=== PATIENT | female | born 1960 | race Caucasian/White ===

== ENCOUNTER 2018-12-18 18:04 | Inpatient (IN) | payer OTHER ==
[2018-12-18 18:45] LABS: Actual Bicarbonate (HCO3a) 20.8 mEq/L (22-28); Analyzer IN Cardio ER; Base Excess (BEa) -2.5 mEq/L (-2.0 to +3.0); CO2 Tension 31.8 mmHg (35.0-45.0); Calcium, Ionized 1.14 mmol/L (1.12-1.30); Carboxyhemoglobin (COHb) 0.3 gm% (0.0-3.0); Hemoglobin (Hb) 12.7 g/dL (12.0-16.0); Potassium - ABG Lab 4.14 mmol/L (3.70-5.30); pH, Arterial 7.43 (7.35-7.45)
[2018-12-18 18:46] LABS: O2 Tension (PaO2) 58.7 mmHg (80.0-100.0)
[2018-12-18 18:47] LABS: Puncture Site RRA
[2018-12-18 23:16] VITALS: BMI 40.6
[2018-12-18] MEDS ORDERED: Morphine 4 MG/ML VIAL SLOW IVP SCH (23:30)
[2018-12-19] MEDS ORDERED: Ondansetron ODT 4 MG TAB SL PRN (01:49)
[2018-12-19] MEDS ORDERED: Ondansetron PF 4 MG/2 ML Vial IVP PRN ×2 (01:49→02:38)
[2018-12-19] MEDS ORDERED: Dexamethasone 4 mg/ml Vial SLOW IVP SCH (02:00)
[2018-12-19] MEDS ORDERED: hydrALAZINE 20 MG/ML VIAL SLOW IVP PRN (02:38)
[2018-12-19] MEDS ORDERED: Dextrose 5% in Water 1,000 ML IV PRN (02:38)
[2018-12-19] MEDS ORDERED: Dextrose 50% Abboject 50 ML SYRINGE SLOW IVP PRN (02:38)
[2018-12-19] MEDS ORDERED: HumaLOG 300 UNITS/3 ML VIAL SC PRN ×2 (02:38)
[2018-12-19] MEDS: cefTRIAXone\\ROCEPHIN 1 GM in Sodium Chloride 0.9% 100 ML IVPB SCH (02:59)
[2018-12-19] MEDS: Azithromycin 500 MG in Sodium Chloride 0.9% 250 ML 250 ML IVPB SCH (04:16)
--- NOTE | 2018-12-19 04:51 | HP ---
PRIMARY CARE PHYSICIAN: She does not have a primary care physician. CHIEF COMPLAINT: Shortness of breath. HISTORY OF PRESENT ILLNESS: Ms. Riddle is a very pleasant 58-year-old female, who has a history of COPD as well as diabetes mellitus and hypothyroidism. She was in her usual state of health until about 3 to 4 days ago when she started having shortness of breath. She says she noted it initially when she got up too fast and was moving around. She also notes a cough, which was productive of some yellow to white phlegm. She denies having any fevers, but says that she has been having chills off and on, as well as some nausea. She came to the ER a couple of days ago, where she was evaluated. She had a CT angiogram of the chest, which was negative for pulmonary embolism; however, did show bilateral patchy opacities as well as some ground-glass opacities in the left upper lobe. She was prescribed some oral antibiotics. She says that she took a full day's worth of the antibiotics, but still was quite short of breath, and for this reason, she came back to the ER and is being admitted for failed outpatient treatment of pneumonia. The patient denies being hospitalized recently. Denies any sick contacts. She did have some diarrhea off and on, but she attributes this to the antibiotics. Otherwise, no other complaints. REVIEW OF SYSTEMS: All systems were reviewed and are negative except for that mentioned in the history of present illness. PAST MEDICAL HISTORY: Significant for restless legs syndrome, COPD, gastroesophageal reflux disease, arthritis, diabetes mellitus, hypothyroidism, and bipolar disorder. PAST SURGICAL HISTORY: She has had a hernia repair, cholecystectomy, hysterectomy, and thyroidectomy. ALLERGIES: COMPAZINE AND VANCOMYCIN. SOCIAL HISTORY: She is , has 6 children. She is a nonsmoker and nondrinker. She denies any drug use. Code status is full code. She has not designated a surrogate decision maker. FAMILY HISTORY: Significant for COPD in her mother as well as Umanzor syndrome, and father of asbestosis. MEDICATIONS: She does not know the names of her medicines except for Nexium. PHYSICAL EXAMINATION: GENERAL: She is alert and oriented. She appears to be in no acute distress. She is well developed and well nourished. VITAL SIGNS: Her blood pressure most recent is 158/80, heart rate is 84, respiratory rate is 22, temperature is 97.5, and O2 saturation is 96% on room air. HEENT: Her pupils are equal, round, and reactive. Extraocular muscles are intact. Her sclerae are anicteric. Throat, there is no erythema, no exudates. NECK: No adenopathy. No bruits. LUNGS: She had some diminished breath sounds; however, there was no wheezing, no rales, no rhonchi that I can appreciate. CARDIOVASCULAR: She had a normal S1 and S2. I did not appreciate an S3 or S4. No murmurs, clicks or rubs. ABDOMEN: Obese, soft, nontender, and nondistended. Positive for bowel sounds. There is no rebound, no guarding. No organomegaly. EXTREMITIES: There is no swelling. No erythema. No calf tenderness. NEUROLOGICAL: Her cranial nerves II through XII are grossly intact. Muscle strength is 5/5 in both her upper and lower extremities. SKIN AND INTEGUMENT: There is no skin changes. No rash. LABORATORY DATA: On her chest x-ray, this is by my reading, poorly penetrated, the heart size is borderline, looks like she has some infiltrate in the right base or platelike atelectasis. CBC, white blood cell count is 22.4, hemoglobin is 12.4, hematocrit is 36.3, and platelet count is 392. ABG, pH is 7.43, pCO2 is 31.8, and pO2 is 58.7. Sodium is 141, potassium is 4.0, chloride is 107, CO2 is 22, BUN is 20, creatinine is 0.92, and glucose is 160. Lactic acid was 2.6. Her urinalysis was essentially negative except for 1+ bacteria and trace leukocyte esterase and small blood. ASSESSMENT: This is a pleasant 58-year-old female, who is being admitted for failed outpatient treatment for pneumonia. It does appear to be a community-acquired pneumonia. She will be admitted to the medical floor, started on IV antibiotics. We will continue DuoNebs. However, she does not have any significant wheezing at this point, so we will hold off on any additional steroids at this time. 1. Chronic obstructive pulmonary disease. Again, we will continue DuoNebs. Hold off on any steroids and treat her with a long-acting beta-agonist. We will also need to reconcile her usual home medications. 2. Diabetes mellitus. We will place her on a sliding scale insulin, and again, we will need to reconcile her home medications. 3. Hypothyroidism. Again, we will need to reconcile home medicines. She appears to be clinically euthyroid. 4. She will be placed on DVT and GI prophylaxis. Job ID: [id number]
[2018-12-19] MEDS: traMADol HCl 50 MG TAB PO PRN ×3 (06:21→20:32)
[2018-12-19 07:46] LABS: Anion Gap 15 mmol/L (10-20); BUN (Urea Nitrogen) 19 mg/dL (9.8-20.1); Calc. Creatinine Clearance 113 mL/min (70-130); Calcium 9.2 mg/dL (7.8-10.44); Carbon Dioxide 20 mmol/L (22-29); Chloride 106 mmol/L (98-107); Estimated GFR-MDRD 69; Glucose 134 mg/dL (70-105); Potassium 3.6 mmol/L (3.5-5.1); Sodium 137 mmol/L (136-145)
[2018-12-19] MEDS: Enoxaparin Sodium 40 MG/0.4 ML SYRINGE SC SCH (08:28)
[2018-12-19 09:08] LABS: Hemoglobin 11.9 g/dL (12.0-16.0); Mean Corpuscular HGB CONC 32.7 g/dL (32.0-36.0); Mean Corpuscular Hemoglobin 29.9 pg (27.0-31.0); Mean Corpuscular Volume 91.5 fL (78.0-98.0); Mean Platelet Volume 9.6 fL (7.4-10.4); Platelet Count 432 thou/uL (130-400); RBC Distribution Width 12.7 % (11.5-14.5); Red Blood Cell (RBC) Count 3.99 mill/uL (4.20-5.40)
[2018-12-19 09:10] LABS: Band 2 % (5-11); Lymphocytes 39 % (21-51); MDiff Complete? YES; Monocytes 11 % (0-10); Neutrophil 48 % (42-75); Platelet Morphology Comment Appears Increased; RBC Morphology Normal
[2018-12-19] MEDS: Ondansetron ODT 4 MG TAB PO PRN ×2 (12:17→20:33)
--- NOTE | 2018-12-19 19:31 | PDOC.PN ---
- Subjective Encounter Start Date: 12/19/18 Encounter Start Time: 19:29 Subjective: seen feeling better - Objective Resuscitation Status - Order Detail: 12/19/18 02:33 Resuscitation Status Routine Resuscitation Status: FULL: Full Resuscitation Vital Signs & Weight: Vital Signs (12 hours) Temp Pulse Resp BP BP Pulse Ox 12/19/18 16:27 98.3 F 84 18 134/89 95 12/19/18 11:29 98.0 F 80 16 153/88 H 98 12/19/18 08:54 97.8 F 95 16 159/84 H 95 12/19/18 08:07 90 16 95 12/19/18 08:00 95 Weight Admit Weight 215 lb 3.2 oz Weight 215 lb 3.2 oz I&O: 12/18/18 12/19/18 12/20/18 06:59 06:59 06:59 Intake Total 485 480 Balance 485 480 Result Diagrams: 12/19/18 06:58 12/19/18 06:58 Additional Labs: Accuchecks 12/19/18 12/19/18 12/19/18 16:31 11:30 04:41 POC Glucose 106 122 H 124 H Phys Exam - Physical Examination Constitutional: NAD HEENT: PERRLA, moist MMs, sclera anicteric, TM's clear Neck: no nodes, no JVD, supple, full ROM Respiratory: no rales Cardiovascular: RRR, no significant murmur, no rub Gastrointestinal: soft, non-tender, no distention, positive bowel sounds Musculoskeletal: no edema, pulses present Neurological: non-focal, normal sensation, moves all 4 limbs Lymphatic: no nodes Dx/Plan (1) Pneumonia Code(s): J18.9 - PNEUMONIA, UNSPECIFIED ORGANISM Status: Acute (2) COPD exacerbation Code(s): J44.1 - CHRONIC OBSTRUCTIVE PULMONARY DISEASE W (ACUTE) EXACERBATION Status: Acute (3) Hypothyroidism Code(s): E03.9 - HYPOTHYROIDISM, UNSPECIFIED Status: Acute (4) Obesity Code(s): E66.9 - OBESITY, UNSPECIFIED Status: Acute - Plan continue antibiotics, respiratory therapy duonebs/antibiotics * .
[2018-12-19] MEDS: Benzonatate 100 MG CAP PO PRN (20:33)
[2018-12-20] MEDS: Ibuprofen 600 MG TAB PO PRN ×2 (00:26→21:46)
[2018-12-20] MEDS: cefTRIAXone\\ROCEPHIN 1 GM in Sodium Chloride 0.9% 100 ML IVPB SCH (03:36)
[2018-12-20] MEDS: traMADol HCl 50 MG TAB PO PRN ×2 (03:36→13:16)
[2018-12-20] MEDS: Azithromycin 500 MG in Sodium Chloride 0.9% 250 ML 250 ML IVPB SCH (03:48)
[2018-12-20] MEDS: Acetaminophen 325 MG TAB PO PRN (08:30)
[2018-12-20] MEDS: Benzonatate 100 MG CAP PO PRN (09:06)
[2018-12-20] MEDS: Enoxaparin Sodium 40 MG/0.4 ML SYRINGE SC SCH (09:07)
--- NOTE | 2018-12-20 14:50 | PQF ---
CLINICAL DOCUMENTATION IMPROVEMENT CLARIFICATION FORM: ICD-10 Updated PLEASE DO AN ADDENDUM TO THE PROGRESS NOTE WITH ANY DOCUMENTATION UPDATES OR ADDITIONS AND CARRY THROUGH TO DC SUMMARY. THANK YOU. DATE: 12/20/18 ATTN: DR. CHURCH Please exercise your independent, professional judgment in responding to the clarification form. Clinical indicators are provided on the bottom of this form for your review Please check appropriate box(s) to clarify if the following diagnosis has been ruled in or ruled out: SEPSIS [ ] Ruled in diagnosis [ ] Continue to treat [ ] Resolved [ ] Ruled out diagnosis [ ] Cannot rule out diagnosis [ ] Other diagnosis [ ] Unable to determine In addition, please specify: Present on Admission (POA): [ ] Yes [ ] No [ ] Unable to determine For continuity of documentation, please document condition throughout progress notes and discharge summary. Thank You. CLINICAL INDICATORS - SIGNS / SYMPTOMS / LABS ER NOTE: "SEPSIS" WBC 22 LACTATE 2.7 H&P: "CHILLS" RISKS: FAILED OUTPATIENT TREATMENT FOR PNEUMONIA (H&P) H/O COPD TREATMENT: IV LEVAQUIN (ER) IV ZITHROMAX (12/19-PRESENT) IV ROCEPHIN (12/19-PRESENT) SAP Armored Service Technician [employer] Winform Viewer(This form is maintained as a part of the permanent medical record) 2014 [employer]. All Rights Reserved TRELL [email or web address] Office: [phone] [email or web address]
[2018-12-21] MEDS: cefTRIAXone\\ROCEPHIN 1 GM in Sodium Chloride 0.9% 100 ML IVPB SCH (03:37)
[2018-12-21] MEDS: Azithromycin 500 MG in Sodium Chloride 0.9% 250 ML 250 ML IVPB SCH (03:37)
[2018-12-21] MEDS: Ibuprofen 600 MG TAB PO PRN ×3 (04:33→20:10)
[2018-12-21] MEDS: Enoxaparin Sodium 40 MG/0.4 ML SYRINGE SC SCH (07:47)
[2018-12-21] MEDS ORDERED: predniSONE 20 MG TAB PO SCH ×2 (10:00→10:30)
[2018-12-21] MEDS ORDERED: PROVENTIL INHALER 6.7 G (200 INHALATIONS) INH PRN (10:15)
[2018-12-21] MEDS ORDERED: Saccharomyces boulardii 250 MG CAP PO SCH ×2 (10:30→11:00)
--- NOTE | 2018-12-21 10:38 | PRG ---
DATE OF SERVICE: 12/21/2018 SUBJECTIVE: The patient is seen and examined at bedside. She just came back from her walk and she is quite short of breath. She is asking me whether she can have more DuoNeb. Apparently, this treatment was stopped and she would like to have them back. Her appetite is coming back. She had bowel movement. OBJECTIVE: VITAL SIGNS: Blood pressure is 123/76, pulse is 79, temperature is 98.2, maximal temperature is 98.3, respiratory rate is 16, O2 saturation is 94% on room air. HEENT: Her head is atraumatic and normocephalic. Eyes are PERRLA. Sclerae are nonicteric. Oral mucosa is moist. NECK: Supple. LUNGS: Somewhat tight with few wheezes in the mid and lower lungs bilaterally similar. HEART: S1, S2 normal. No S3. No S4. ABDOMEN: Obese, soft, nontender. Bowel sounds are present. EXTREMITIES: No clubbing, cyanosis, or edema. NEUROLOGICAL: She is alert and oriented x4. There is no any motor or sensory deficits present. Cranial nerves are intact. LABORATORY DATA: Glycemia is ranging from 85 to 116. Microbiology; growth on blood cultures x2 and the urine culture x1. IMPRESSION: 1. Chronic obstructive pulmonary disease exacerbation with some questionable infectious infiltrates on the CT angiogram. 2. Diabetes mellitus. 3. Hypothyroidism. PLAN: Plan is to put her back on her DuoNeb p.r.n. as needed. Start her on 40 mg of prednisone. Continue her Rocephin and azithromycin. Start her back on her levothyroxine, Cymbalta, her diabetic medications, pravastatin, aripiprazole, and Advair Diskus. Obtain CBC. Job ID: [id number]
[2018-12-21 11:38] LABS: Eosinophils 3 % (0-10); Hemoglobin 13.3 g/dL (12.0-16.0); Large Platelets SLIGHT; Lymphocytes 27 % (21-51); MDiff Complete? YES; Mean Corpuscular HGB CONC 32.5 g/dL (32.0-36.0); Mean Corpuscular Hemoglobin 29.4 pg (27.0-31.0); Mean Corpuscular Volume 90.6 fL (78.0-98.0); Mean Platelet Volume 9.4 fL (7.4-10.4); Monocytes 10 % (0-10); Neutrophil 33 % (42-75); Platelet Count 459 thou/uL (130-400); Platelet Morphology Comment Appears Increased; RBC Distribution Width 12.4 % (11.5-14.5); Reactive Lymphocytes 26 % (0-10); Red Blood Cell (RBC) Count 4.51 mill/uL (4.20-5.40); White Blood Cell (WBC) Count 16.1 thou/uL (4.8-10.8)
[2018-12-21] MEDS: metFORMIN XR 500 MG TAB PO SCH (16:50)
[2018-12-21] MEDS ORDERED: METFORMIN HCL PO SCH (17:00)
[2018-12-21] MEDS ORDERED: SAXAGLIPTIN HCL PO SCH (17:00)
[2018-12-21] MEDS: Mometasone/Formoterol 120 PUFF INHALER INH SCH (18:53)
[2018-12-21] MEDS: Zolpidem Tartrate 5 MG TAB PO SCH (20:06)
[2018-12-21] MEDS ORDERED: Non-Formulary Item 1 EACH (Eszopiclone [Lunesta] 3 MG) PO SCH (21:00)
[2018-12-21] MEDS ORDERED: Non-Formulary Item 1 EACH (Fluticasone/Salmeterol [Advair Diskus 250/50] 1 PUFF) INH SCH (21:00)
[2018-12-21] MEDS: Ondansetron ODT 4 MG TAB PO PRN (23:01)
--- NOTE | 2018-12-22 00:05 | EKG ---
Test Reason : Blood Pressure : / mmHG Vent. Rate : 082 BPM Atrial Rate : 082 BPM P-R Int : 122 ms QRS Dur : 074 ms QT Int : 376 ms P-R-T Axes : 071 049 052 degrees QTc Int : 439 ms Normal sinus rhythm Normal ECG Confirmed by JOO SIEGEL, GENE ([id number]), script editor MAGI TUTTLE ([id number]) on 12/22/2018 12:04:22 AM Referred By: Confirmed By:GENE GE MD
[2018-12-22] MEDS: Azithromycin 500 MG in Sodium Chloride 0.9% 250 ML 250 ML IVPB SCH (02:53)
[2018-12-22] MEDS: Acetaminophen 325 MG TAB PO PRN (03:34)
[2018-12-22] MEDS: cefTRIAXone\\ROCEPHIN 1 GM in Sodium Chloride 0.9% 100 ML IVPB SCH (03:35)
[2018-12-22] MEDS: Levothyroxine Sodium 25 MCG TAB PO SCH (06:01)
[2018-12-22] MEDS: Levothyroxine Sodium 112 MCG TAB PO SCH (06:01)
[2018-12-22] MEDS: Mometasone/Formoterol 120 PUFF INHALER INH SCH ×2 (07:48→18:44)
[2018-12-22] MEDS: DULoxetine 60 MG CAP PO SCH (07:55)
[2018-12-22] MEDS: predniSONE 20 MG TAB PO SCH (07:55)
[2018-12-22] MEDS: Gabapentin 300 MG CAP PO SCH (07:55)
[2018-12-22] MEDS: Atorvastatin Calcium 10 MG TAB PO SCH (07:56)
[2018-12-22] MEDS: Meloxicam 15 MG TAB PO SCH (07:56)
[2018-12-22] MEDS: Aripiprazole 10 MG TAB PO SCH (07:56)
[2018-12-22] MEDS: Enoxaparin Sodium 40 MG/0.4 ML SYRINGE SC SCH (07:56)
[2018-12-22] MEDS: Saccharomyces boulardii 250 MG CAP PO SCH (07:56)
[2018-12-22] MEDS: Bupropion 150 MG XL TAB PO SCH (07:57)
--- NOTE | 2018-12-22 08:43 | PRG ---
DATE OF SERVICE: 12/22/2018 SUBJECTIVE: The patient is seen and examined at bedside. She is feeling better. Her shortness of breath improved. She is started on DuoNeb. OBJECTIVE: VITAL SIGNS: Blood pressure is 155/78, pulse is 101, respirations 16, O2 saturation is 96% on room air. HEENT: Head is atraumatic and normocephalic. Eyes are PERRLA. Sclerae nonicteric. Oral mucosa is moist. NECK: Supple. LUNGS: Much less tight than yesterday. Few wheezes bilaterally. No crackles. HEART: S1 and S2, somewhat tachycardic. No S3. No S4. ABDOMEN: Soft, obese, nontender. EXTREMITIES: No clubbing, cyanosis, or edema. NEUROLOGICAL: She follows my commands. She moves her all four extremities. There is no any motor or sensory deficits. Cranial nerves are intact. LABORATORY DATA: Labs showed glycemia ranging from 101 to 176. IMPRESSION: 1. Chronic obstructive pulmonary disease exacerbation. I am going to obtain the chest x-ray tomorrow morning since there was some suspicion that maybe she has pneumonia. 2. Diabetes mellitus, well controlled. 3. Hypothyroidism. PLAN: Plan is to increase her ambulation today. Continue her prednisone. Continue DuoNeb. Continue Rocephin and azithromycin and all medications along with her Advair Diskus. Her white count was down to 16,000 yesterday and we are going to have additional CBC tomorrow morning and she should be able to go home tomorrow. Job ID: [id number]
[2018-12-22] MEDS ORDERED: Non-Formulary Item 1 EACH (Levothyroxine Sodium [Levothyroxine Sodium] 137 MCG) PO SCH (09:00)
[2018-12-22] MEDS: traMADol HCl 50 MG TAB PO PRN (15:16)
[2018-12-22] MEDS: metFORMIN XR 500 MG TAB PO SCH (16:23)
[2018-12-22] MEDS ORDERED: Alogliptin 25 MG TAB PO SCH (17:00)
[2018-12-22] MEDS: Zolpidem Tartrate 5 MG TAB PO SCH (19:52)
[2018-12-23] MEDS: Azithromycin 500 MG in Sodium Chloride 0.9% 250 ML 250 ML IVPB SCH (03:04)
[2018-12-23] MEDS: cefTRIAXone\\ROCEPHIN 1 GM in Sodium Chloride 0.9% 100 ML IVPB SCH (03:56)
[2018-12-23] MEDS: Levothyroxine Sodium 25 MCG TAB PO SCH (05:40)
[2018-12-23] MEDS: Levothyroxine Sodium 112 MCG TAB PO SCH (05:43)
[2018-12-23] MEDS: Mometasone/Formoterol 120 PUFF INHALER INH SCH (06:42)
[2018-12-23] MEDS: predniSONE 20 MG TAB PO SCH (08:16)
[2018-12-23] MEDS: Gabapentin 300 MG CAP PO SCH (08:16)
[2018-12-23] MEDS: Bupropion 150 MG XL TAB PO SCH (08:16)
[2018-12-23] MEDS: Atorvastatin Calcium 10 MG TAB PO SCH (08:16)
[2018-12-23] MEDS: Meloxicam 15 MG TAB PO SCH (08:16)
[2018-12-23] MEDS: Saccharomyces boulardii 250 MG CAP PO SCH (08:16)
[2018-12-23] MEDS: DULoxetine 60 MG CAP PO SCH (08:17)
[2018-12-23] MEDS: Enoxaparin Sodium 40 MG/0.4 ML SYRINGE SC SCH (08:17)
[2018-12-23] MEDS: Aripiprazole 10 MG TAB PO SCH (08:17)
--- NOTE | 2018-12-23 09:42 | RAD ---
RADIOGRAPH CHEST 1 VIEW: Date: 12-23-18 Time: 7:24 A.M. HISTORY: 58-year-old female with COPD exacerbation. COMPARISON: 12-18-18 FINDINGS: Upper lobes are clear. At the bilateral lower lung zones, there are transversely oriented plate like densities, consistent with subsegmental atelectasis. Lateral costophrenic angles are sharp. No pneumo thorax or pulmonary edema. No definite interval change. IMPRESSION: 1. Extensive bibasilar subsegmental atelectasis. 2. Upper lobes are clear. 3. No interval change. HÉCTOR POS: PARKER
--- NOTE | 2018-12-23 10:07 | PQF ---
CLINICAL DOCUMENTATION IMPROVEMENT CLARIFICATION FORM: ICD-10 Updated PLEASE DO AN ADDENDUM TO THE PROGRESS NOTE WITH ANY DOCUMENTATION UPDATES OR ADDITIONS AND CARRY THROUGH TO DC SUMMARY. THANK YOU. DATE: 12/23/18 ATTN: DR. GANDARA Please exercise your independent, professional judgment in responding to the clarification form. Clinical indicators are provided on the bottom of this form for your review Please check appropriate box(s) to clarify if the following diagnosis has been ruled in or ruled out: SEPSIS [x ] Ruled in diagnosis [ ] Continue to treat [ ] Resolved [ ] Ruled out diagnosis [ ] Cannot rule out diagnosis [ ] Other diagnosis [ ] Unable to determine In addition, please specify: Present on Admission (POA): [ ] Yes [ ] No [ ] Unable to determine For continuity of documentation, please document condition throughout progress notes and discharge summary. Thank You. CLINICAL INDICATORS - SIGNS / SYMPTOMS / LABS ER NOTE: "SEPSIS" WBC 22 LACTATE 2.7 H&P: "CHILLS" RISKS: FAILED OUTPATIENT TREATMENT FOR PNEUMONIA (H&P) H/O COPD TREATMENT: IV LEVAQUIN (ER) IV ZITHROMAX (12/19-PRESENT) IV ROCEPHIN (12/19-PRESENT) SAP Product Applications Engineer [employer] Winform Viewer(This form is maintained as a part of the permanent medical record) 2014 [employer]. All Rights Reserved TRELL [email or web address] Office: [phone] MTDD
[2018-12-23 10:10] VITALS: BP 165/92; TEMP 98.2
--- NOTE | 2018-12-23 14:22 | DIS ---
DATE OF ADMISSION: 12/18/2018 DATE OF DISCHARGE: 12/23/2018 FINAL DIAGNOSES: 1. Chronic obstructive pulmonary disease exacerbation, pneumonia was ruled out. 2. Diabetes mellitus, well controlled. 3. Hypothyroidism. HOSPITAL COURSE: The patient is a 58-year-old female, who has a history of COPD as well as diabetes mellitus and hypothyroidism, who developed some shortness of breath with some productive cough of yellow to white phlegm without any fevers, chills on and off and some nausea, who came to the emergency room couple of days prior to this hospitalization. She had CT angiogram of the chest, which was negative for PE, however, it did show bilateral patchy opacities as well as some ground glass opacities in the left upper lobe. She was prescribed oral antibiotics to get full days worth of antibiotic, but the shortness of breath did not improve and for that reason, she came back to the emergency room since she failed outpatient treatment for possible pneumonia. No any sick contacts. She did have some diarrhea on and off, which was attributed to her antibiotic use. During emergency room evaluation, her white count was elevated at 22.4, hemoglobin 12.4, hematocrit 36.3, platelet count 392. ABGs showed pH of 7.43, pCO2 31.8, and PO2 was 58.7. Her CO2 was 22, BUN 20, creatinine 0.92. Lactic acid was 2.6. Urinalysis was basically negative. The patient was admitted to the hospital. It felt that she could have community-acquired pneumonia and she was started on DuoNeb, on IV Rocephin and azithromycin. She was placed on prednisone and gradually improved. Her followup chest x-ray still showed some bilateral changes, but this is felt to be bibasilar subsegmental atelectasis and her upper lobes were clear according to the Radiology report. Clinically, she is doing well. She is able to ambulate. Her pulse oximetry is 93% on room air. Her temperature is 98.2, pulse is 76, and respiratory rate is 20. Her blood pressure is 130/87. She was examined and evaluated before she was discharged. DISCHARGE CONDITION: Her condition at the time of discharge is good. DISPOSITION: Home. ACTIVITIES: As tolerated. DIET: Heart healthy. MEDICATIONS: At the time of discharge, 1. Levofloxacin 500 mg daily for five days. 2. Florastor 250 mg once a day. 3. Prednisone 20 mg twice a day for five days. 4. Continue DuoNeb p.r.n. 5. Continue Nexium 40 mg once a day. 6. Meloxicam 15 mg once a day. 7. Aripiprazole 20 mg twice a day. 8. Gabapentin 300 mg daily. 9. Pravastatin 40 mg once a day. 10. Bupropion 150 mg once a day. 11. Kombiglyze XR one tablet every evening. 12. Cymbalta 60 mg once a day. 13. Lunesta 3 mg at bedtime. 14. Levothyroxine 137 mcg once a day. 15. Advair Diskus 250/50 one puff q.12 hours. FOLLOWUP: She will follow up with her primary care physician in 1 week. TIME SPENT: The time was spent on this discharge is less than 30 minutes. Job ID: [id number]
== END 2018-12-23 10:19 | disposition home or self-care (01) | DRG 871 ==
LOC: ERS 18:04 → T4-B 22:13
PROVIDERS: ADMIT Emergency Medicine; ATTEND Emergency Medicine
DX: A41.9 Sepsis, unspecified organism (principal); J18.9 Pneumonia, unspecified organism; J44.0 Chronic obstructive pulmonary disease with (acute) lower respiratory infection; J44.1 Chronic obstructive pulmonary disease with (acute) exacerbation; E11.9 Type 2 diabetes mellitus without complications; E03.9 Hypothyroidism, unspecified; E66.9 Obesity, unspecified
CPT/HCPCS: 36415; 36416; 71045; 80048; 82550; 82805; 83880; 85025; 93005; 94640; 96365; 96366; J0456; J0696; J1100; J1650; J1956; J2270; J7050; J7506; J7620; Q0162

== ENCOUNTER 2019-05-16 15:47 | Emergency (ER) | payer OTHER ==
[2019-05-16 16:31] LABS: Bilirubin Negative (Negative); Blood, Urine Negative (Negative); Clarity CLEAR (Clear); Glucose, Urine (Dipstick) Negative (Negative); Leukocyte Moderate (Negative); Nitrite Negative (Negative); Protein, Urine (Dipstick) Negative (Neg-Trace); Specific Gravity, Urine 1.019 (1.002-1.036); Urobilinogen 0.2 mg/dL (0.2-1.0)
[2019-05-16 16:35] LABS: Bacteria/HPF None Seen HPF (None Seen); Hyaline Casts/LPF 0-3 HYALINE CAST LPF (0-3 Hyaline); Pathc Cast-AUWi Flag 0.27 (0-2.49); Squamous Epithelial 0-3 HPF (0-3); WBC/HPF 0-3 HPF (0-3)
[2019-05-16 16:36] LABS: Hemoglobin 13.6 g/dL (12.0-16.0); Mean Corpuscular HGB CONC 32.9 g/dL (32.0-36.0); Mean Corpuscular Volume 88.2 fL (78.0-98.0); Mean Platelet Volume 8.7 fL (7.4-10.4); Platelet Count 498 thou/uL (130-400); RBC Distribution Width 12.4 % (11.5-14.5); Red Blood Cell (RBC) Count 4.67 mill/uL (4.20-5.40); White Blood Cell (WBC) Count 15.2 thou/uL (4.8-10.8)
[2019-05-16 16:57] LABS: Eosinophils 2 % (0-10); Lymphocytes 60 % (21-51); MDiff Complete? YES; Monocytes 6 % (0-10); Neutrophil 32 % (42-75); Platelet Morphology Comment Appears Adequate
[2019-05-16 17:03] LABS: ALT (SGPT) 39 U/L (8-55); AST (SGOT) 45 U/L (5-34); Albumin 4.2 g/dL (3.5-5.0); Alkaline Phosphatase 95 U/L (40-150); Anion Gap 16 mmol/L (10-20); BUN (Urea Nitrogen) 14 mg/dL (9.8-20.1); Bilirubin, Total 0.4 mg/dL (0.2-1.2); Calc. Creatinine Clearance 0 mL/min (70-130); Calcium 9.4 mg/dL (7.8-10.44); Carbon Dioxide 22 mmol/L (22-29); Chloride 106 mmol/L (98-107); Estimated GFR-MDRD 69; Globulin 3.9 g/dL (2.4-3.5); Glucose 87 mg/dL (70-105); Lipase 60 U/L (8-78); Potassium 4.8 mmol/L (3.5-5.1); Protein, Total 8.1 g/dL (6.0-8.3); Sodium 139 mmol/L (136-145)
[2019-05-16] MEDS ORDERED: Ondansetron ODT 8 MG TAB ONE (19:52)
== END 2019-05-16 19:55 | disposition home or self-care (01) ==
LOC: ERS 15:47
DX: R11.2 Nausea with vomiting, unspecified (principal); R19.7 Diarrhea, unspecified; E11.9 Type 2 diabetes mellitus without complications; E03.9 Hypothyroidism, unspecified; F31.9 Bipolar disorder, unspecified; J44.9 Chronic obstructive pulmonary disease, unspecified; G25.81 Restless legs syndrome; K21.9 Gastro-esophageal reflux disease without esophagitis; M19.90 Unspecified osteoarthritis, unspecified site
CPT/HCPCS: 36415; 80053; 81003; 81015; 83690; 85025; 99284